=== PATIENT | female | born 1995 | race Caucasian/White ===

== ENCOUNTER → 2016-07-23 | Outpatient (REF) | payer OTHER ==
[~2016-07-23] MED LIST: ALPR1TAB3 PO; AMOX500C PO; AMPH20CA PO; COLA100C PO; FLAG500T PO; IBUP800T23 PO; MOM30SS PO; OXCA300T PO; SUBO4MIS SL; SUBO8MIS SL; TRAZ100T4 PO; TRIL1TAB PO; TRIL600T PO; XANA1TAB2 PO; adderall PO; toradol PO
== END ==
LOC: M LAB REF 16:49
PROVIDERS: ATTEND Advanced Practice Midwife
DX: N76.1 Subacute and chronic vaginitis (principal)

== ENCOUNTER → 2016-09-01 | Outpatient (CLI) | payer OTHER, SELFPAY ==
[~2016-09-01] MED LIST changes: -COLA100C PO; +COLA100C3 PO
== END ==
LOC: M LAB 11:54
PROVIDERS: ATTEND Advanced Practice Midwife
DX: N91.1 Secondary amenorrhea (principal)

== ENCOUNTER 2016-09-18 22:59 | Emergency (ER) | payer MEDICAID, SELFPAY ==
[~2016-09-18] VITALS: Ht 170.2 cm; Wt 66.7 kg
[2016-09-18] MEDS ORDERED: TYLE500T78 PO (23:16)
[2016-09-19] MEDS ORDERED: IBUPROFEN 600 MG TAB PO ONE
[2016-09-19] MEDS ORDERED: ALPRAZolam 0.25 MG TAB PO ONE
[2016-09-19 00:20] LABS: BASO % 0.5 % (0.0-1.0); EOS # 0.4 K/mm3 (0.0-0.50); EOS % 7.3 % (0.0-3.0); LARGE UNSTAINED CELL # 0.1 K/mm3 (0.0-0.4); LYMPH # 2.3 K/mm3 (1.5-6.5); MEAN CORPUSCULAR HEMOGLOBIN 30.6 pg (27.0-33.0); MEAN CORPUSCULAR HGB CONC 34.3 g/dl (32.0-36.5); MEAN CORPUSCULAR VOLUME 89.5 fl (80.0-96.0); MONO # 0.3 K/mm3 (0.0-0.8); MONO % 4.6 % (0.0-5.0); NEUTROPHILS # 2.6 K/mm3 (1.8-7.7); NEUTROPHILS % 46.5 % (36.0-66.0); PLATELET COUNT, AUTOMATED 265 k/mm3 (150-450); RED CELL DISTRIBUTION WIDTH 13.3 % (11.5-14.5); WHITE BLOOD COUNT 5.7 K/mm3 (4.0-10.0)
--- NOTE | 2016-09-19 00:50 | REPUSA ---
CLINICAL HISTORY: Bleeding. Suspected retained products of conception. TECHNIQUE: Realtime sonographic images were obtained in multiple projections via TA approach. COMMENTS: The uterus is anteverted measuring 9.5x5.5x8.6 cm. The endometrial echo pattern is within normal limi ts measuring 10.6 mm. There is no evidence of free fluid within the pelvic cul-de-sac. The right ovary measures 3.5x2.3x1.9 cm and the left ovary measures 2.7x1.8x2 cm. Both ovaries are fr ee of solid or cystic mass. There is no evidence for abnormal vascularity. IMPRESSION: Heterogeneous endometrium. No increased vascularity on color Doppler exam to suggest retained products of conception. Followup exam is suggested for further evaluation if clinical concern persists. Thank you for your kind referral of this patient.
[2016-09-19 02:02] VITALS: BP 121/58
--- NOTE | 2016-09-19 08:08 | ED PDOC ---
Post-Departure Follow-Up certified letter sent regarding radiology report Veronica Gresham MD September 19, 2016 08:08
== END 2016-09-19 02:13 | disposition home or self-care (01) ==
LOC: M ED 22:59
DX: N93.8 Other specified abnormal uterine and vaginal bleeding (principal); Z72.0 Tobacco use; Z79.1 Long term (current) use of non-steroidal anti-inflammatories (NSAID); Z79.899 Other long term (current) drug therapy; F31.9 Bipolar disorder, unspecified

== ENCOUNTER → 2016-10-23 | Outpatient (CLI) | payer MEDICAID ==
[~2016-10-23] MED LIST changes: -COLA100C3 PO; +COLA100C5 PO; +IBUP1TAB7 PO; -IBUP800T23 PO; +TRAZ-136 PO; -TRAZ100T4 PO; +TYLE500T78 PO
== END ==
LOC: M OUTALCOH 13:19
PROVIDERS: ATTEND Psychiatry & Neurology Psychiatry
DX: Z13.9 Encounter for screening, unspecified (principal); F11.20 Opioid dependence, uncomplicated

== ENCOUNTER 2016-11-20 14:00 | Outpatient (RCR) | payer MEDICAID | END 2016-11-24 | LOC: M OUTALCOH 14:00 | PROVIDERS: ATTEND Psychiatry & Neurology Psychiatry | DX: F11.20 Opioid dependence, uncomplicated (principal) ==

== ENCOUNTER 2016-11-28 10:00 | Outpatient (RCR) | payer MEDICAID | END 2016-12-25 | LOC: M OUTALCOH 10:00 | PROVIDERS: ATTEND Psychiatry & Neurology Psychiatry | DX: F11.20 Opioid dependence, uncomplicated (principal) ==

== ENCOUNTER → 2017-01-15 | Outpatient (CLI) | payer MEDICAID | LOC: M OUTALCOH 13:17 | PROVIDERS: ATTEND Psychiatry & Neurology Psychiatry | DX: F10.10 Alcohol abuse, uncomplicated (principal) ==

== ENCOUNTER → 2017-01-20 | Outpatient (REF) | payer MEDICAID | LOC: M LAB REF 17:12 | PROVIDERS: ATTEND Advanced Practice Midwife | DX: Z11.3 Encounter for screening for infections with a predominantly sexual mode of transmission (principal) ==

== ENCOUNTER 2017-01-23 13:55 | Outpatient (RCR) | payer MEDICAID | END 2017-01-24 | LOC: M OUTALCOH 13:55 | PROVIDERS: ATTEND Psychiatry & Neurology Psychiatry | DX: F11.20 Opioid dependence, uncomplicated (principal); F13.20 Sedative, hypnotic or anxiolytic dependence, uncomplicated; F15.20 Other stimulant dependence, uncomplicated; Z72.0 Tobacco use ==

== ENCOUNTER 2017-03-24 10:00 | Outpatient (RCR) | payer MEDICAID | END 2017-03-26 | LOC: M OUTALCOH 10:00 | PROVIDERS: ATTEND Psychiatry & Neurology Psychiatry | DX: F11.20 Opioid dependence, uncomplicated (principal); F13.20 Sedative, hypnotic or anxiolytic dependence, uncomplicated; F15.20 Other stimulant dependence, uncomplicated; Z72.0 Tobacco use ==

== ENCOUNTER 2017-03-27 14:53 | Outpatient (RCR) | payer MEDICAID | END 2017-04-26 | LOC: M OUTALCOH 14:53 | DX: F11.20 Opioid dependence, uncomplicated (principal); F13.20 Sedative, hypnotic or anxiolytic dependence, uncomplicated; F15.20 Other stimulant dependence, uncomplicated; Z72.0 Tobacco use ==

== ENCOUNTER 2017-05-05 11:00 | Outpatient (RCR) | payer MEDICAID, SELFPAY | END 2017-05-27 | LOC: M OUTALCOH 05-11 14:00 | DX: F11.20 Opioid dependence, uncomplicated (principal); F13.20 Sedative, hypnotic or anxiolytic dependence, uncomplicated; F15.20 Other stimulant dependence, uncomplicated; Z72.0 Tobacco use | CPT/HCPCS: 80307 ==

== ENCOUNTER → 2017-05-05 | Outpatient (REF) | payer MEDICAID ==
[2017-05-08 00:06] LABS: OXYCODONE SCREEN Negative ng/mL (Cutoff:5)
== END ==
LOC: M LABDRAW1 14:20
DX: F11.20 Opioid dependence, uncomplicated (principal)

== ENCOUNTER 2017-06-08 09:22 | Outpatient (RCR) | payer MEDICAID | END 2017-06-24 | LOC: M OUTALCOH 06-15 13:50 | DX: F11.20 Opioid dependence, uncomplicated (principal); F13.20 Sedative, hypnotic or anxiolytic dependence, uncomplicated; F15.20 Other stimulant dependence, uncomplicated; Z72.0 Tobacco use ==

== ENCOUNTER → 2017-06-26 | Outpatient (REF) | payer MEDICAID ==
[2017-06-26 15:11] LABS: CHLAMYDIA DNA AMPLIFICATION NEGATIVE (NEGATIVE); GC DNA AMPLIFICATION NEGATIVE (NEGATIVE)
== END ==
LOC: M LAB REF 13:03
DX: Z11.3 Encounter for screening for infections with a predominantly sexual mode of transmission (principal)

== ENCOUNTER 2017-06-29 09:53 | Outpatient (RCR) | payer MEDICAID, OTHER | END 2017-07-25 | LOC: M OUTALCOH 07-06 13:00 | DX: F11.20 Opioid dependence, uncomplicated (principal); F13.20 Sedative, hypnotic or anxiolytic dependence, uncomplicated; F15.20 Other stimulant dependence, uncomplicated; Z72.0 Tobacco use | CPT/HCPCS: 90834 ==

== ENCOUNTER → 2017-07-08 | Outpatient (REF) | payer MEDICAID | LOC: M SFHCLERA 16:15 | DX: R30.0 Dysuria (principal); N94.9 Unspecified condition associated with female genital organs and menstrual cycle ==

== ENCOUNTER 2017-08-13 15:16 | Outpatient (RCR) | payer MEDICAID | END 2017-08-24 | LOC: M OUTALCOH 08-17 16:00 | DX: F11.20 Opioid dependence, uncomplicated (principal); F13.20 Sedative, hypnotic or anxiolytic dependence, uncomplicated; F15.20 Other stimulant dependence, uncomplicated; Z72.0 Tobacco use | CPT/HCPCS: 90832 ==

== ENCOUNTER 2017-10-01 12:33 | Emergency (ER) | payer OTHER, MEDICAID ==
[2017-10-01] MEDS: IBUPROFEN 600 MG TAB PO (13:38)
== END 2017-10-01 16:55 | disposition home or self-care (01) ==
LOC: M ED 12:33
DX: S10.93XA Contusion of unspecified part of neck, initial encounter (principal); S90.02XA Contusion of left ankle, initial encounter; V03.00XA Pedestrian on foot injured in collision with car, pick-up truck or van in nontraffic accident, initial encounter; Y92.481 Parking lot as the place of occurrence of the external cause; F17.200 Nicotine dependence, unspecified, uncomplicated; Z79.899 Other long term (current) drug therapy
CPT/HCPCS: 72072

== ENCOUNTER → 2017-12-14 | Outpatient (CLI) | payer MEDICAID | LOC: M OUTALCOH 08:55 | DX: F11.20 Opioid dependence, uncomplicated (principal); F13.20 Sedative, hypnotic or anxiolytic dependence, uncomplicated; F15.20 Other stimulant dependence, uncomplicated; F17.201 Nicotine dependence, unspecified, in remission ==

== ENCOUNTER 2017-12-31 14:00 | Outpatient (RCR) | payer MEDICAID | END 2018-01-24 | LOC: M OUTALCOH 01-19 15:22 | DX: F11.20 Opioid dependence, uncomplicated (principal); F13.20 Sedative, hypnotic or anxiolytic dependence, uncomplicated; F15.20 Other stimulant dependence, uncomplicated; Z72.0 Tobacco use ==

== ENCOUNTER 2018-02-01 09:46 | Outpatient (RCR) | payer MEDICAID | END 2018-02-24 | LOC: M OUTALCOH 02-03 08:30 | DX: F11.20 Opioid dependence, uncomplicated (principal); F13.20 Sedative, hypnotic or anxiolytic dependence, uncomplicated; F15.20 Other stimulant dependence, uncomplicated; Z72.0 Tobacco use ==

== ENCOUNTER → 2018-02-18 | Outpatient (REF) | payer MEDICAID ==
[2018-02-18 17:22] LABS: APPEARANCE, URINE HAZY (CLEAR); BACTERIA, URINE AUTO NEGATIVE (NEGATIVE); BILIRUBIN, URINE AUTO NEGATIVE (NEGATIVE); BLOOD, URINE BLOOD NEGATIVE (NEGATIVE); COLOR, URINE YELLOW (YELLOW); GLUCOSE, URINE (UA) AUTO NEGATIVE (NEGATIVE); KETONE, URINE AUTO NEGATIVE (NEGATIVE); LEUKOCYTE ESTERASE, URINE AUTO NEGATIVE (NEGATIVE); MUCUS, URINE SMALL (NEGATIVE); NITRITE, URINE AUTO NEGATIVE (NEGATIVE); PROTEIN, URINE AUTO NEGATIVE (NEGATIVE); RBC, URINE AUTO 1 /HPF (0-3); SPECIFIC GRAVITY URINE AUTO 1.026 (1.002-1.035); SQUAMOUS EPITHELIAL CELL UR AU 3 /HPF (0-6); UROBILINOGEN, URINE AUTO 0.2 mg/dL (0.0-2.0); WBC, URINE AUTO 3 /HPF (0-3)
== END ==
LOC: M LAB REF 16:50
DX: N39.0 Urinary tract infection, site not specified (principal)

== ENCOUNTER 2018-03-01 14:17 | Outpatient (RCR) | payer MEDICAID | END 2018-03-26 | LOC: M OUTALCOH 03-08 15:00 | DX: F11.20 Opioid dependence, uncomplicated (principal); F13.20 Sedative, hypnotic or anxiolytic dependence, uncomplicated; F15.20 Other stimulant dependence, uncomplicated; Z72.0 Tobacco use ==

== ENCOUNTER → 2018-03-29 | Outpatient (REF) | payer OTHER ==
[2018-03-29 21:51] LABS: APPEARANCE, URINE CLOUDY (CLEAR); BACTERIA, URINE AUTO 1+ (NEGATIVE); BILIRUBIN, URINE AUTO NEGATIVE (NEGATIVE); BLOOD, URINE BLOOD NEGATIVE (NEGATIVE); COLOR, URINE YELLOW (YELLOW); GLUCOSE, URINE (UA) AUTO NEGATIVE (NEGATIVE); KETONE, URINE AUTO NEGATIVE (NEGATIVE); LEUKOCYTE ESTERASE, URINE AUTO 2+ (NEGATIVE); MUCUS, URINE LARGE (NEGATIVE); NITRITE, URINE AUTO NEGATIVE (NEGATIVE); PROTEIN, URINE AUTO NEGATIVE (NEGATIVE); RBC, URINE AUTO 2 /HPF (0-3); SPECIFIC GRAVITY URINE AUTO 1.029 (1.002-1.035); SQUAMOUS EPITHELIAL CELL UR AU 35 /HPF (0-6); UROBILINOGEN, URINE AUTO 0.2 mg/dL (0.0-2.0); WBC, URINE AUTO 6 /HPF (0-3)
== END ==
LOC: M LAB REF 10:04
DX: N39.0 Urinary tract infection, site not specified (principal)